=== PATIENT | male | born 1960 | race Caucasian/White ===

== ENCOUNTER 2018-02-24 09:49 | Inpatient (IN) | payer MEDICAID ==
[~2018-02-24] VITALS: Ht 172.7 cm; Wt 111.1 kg
[2018-02-24 09:52] VITALS: BP 168/116
[2018-02-24] MEDS ORDERED: LOPRESSOR50 PO (10:05)
[2018-02-24] MEDS ORDERED: ATORVASTATIN CA40 MG PO (10:05)
[2018-02-24] MEDS ORDERED: LISINOPRIL20 MG PO (10:05)
[2018-02-24] MEDS ORDERED: AMLODIPINE BESY10 MG PO (10:05)
[2018-02-24] MEDS ORDERED: CARDIZEM CD120 MG PO (10:05)
[2018-02-24] MEDS ORDERED: NAPROSYN500 MG PO (10:06)
[2018-02-24] MEDS ORDERED: ASPIRIN325 PO (10:06)
[2018-02-24] MEDS ORDERED: HYDRALAZINE 2525 MG PO (10:06)
[2018-02-24 10:42] LABS: HEMATOCRIT 48.9 % (42.0-52.0); HEMOGLOBIN 16.5 gm/dL (14.0-18.0); MCH 33.6 pg (26.0-34.0); MCHC 33.8 g/dL (28.0-37.0); MCV 99.5 fL (80.0-100.0); MPV 8.9 fl. (7.2-11.1); NUCLEATED RBCS 0 /100WBC; PLATELET COUNT* 240 thou/uL (150-400); RBC 4.91 mil/uL (4.50-6.00); RDW-CV 12.9 % (10.5-14.5); WBC 14.7 thou/uL (4.0-11.0)
[2018-02-24 11:05] LABS: APTT 24.1 Seconds (25.0-31.3); PROTIME 10.1 Seconds (9.20-11.50)
[2018-02-24 11:06] LABS: ANION GAP 10 mmol/L (7-16); BUN 16 mg/dL (7-18); CALCIUM 11.6 mg/dL (8.5-10.1); CHLORIDE 102 mmol/L (98-107); CO2 31 mmol/L (21-32); CREATININE 1.1 mg/dL (0.6-1.3); GLUCOSE 140 mg/dL (70-99); POTASSIUM 3.3 mmol/L (3.5-5.1); SODIUM 143 mmol/L (136-145)
[2018-02-24 11:08] LABS: SALICYLATE < 2.8 mg/dL (2.8-20.0)
[2018-02-24 11:11] LABS: ACETAMINOPHEN < 2 ug/mL (10-30); ALCOHOL < 10 mg/dL (<10)
[2018-02-24 11:27] LABS: ALBUMIN 4.4 g/dL (3.4-5.0); ALKALINE PHOSPHATASE 98 U/L (46-116); CK-MB MASS 0.8 ng/mL (<0.5-3.6); LIPASE 104 U/L (73-393); MAGNESIUM 2.2 mg/dL (1.8-2.4); NT-PRO BRAIN NAT PEPTIDE 455 pg/mL (<300); SGOT 53 U/L (15-37); SGPT 104 U/L (30-65); TOTAL BILIRUBIN 0.8 mg/dL (<0.1-1.0); TOTAL PROTEIN 9.8 g/dL (6.4-8.2); TROPONIN-I LEVEL <0.06 ng/mL (<0.06)
[2018-02-24 11:48] LABS: ABSOLUTE BASOPHILS 0.1 thou/uL (0.0-0.2); ABSOLUTE LYMPHOCYTES 0.9 thou/uL (0.8-5.3); ABSOLUTE NEUTROPHILS 13.7 thou/uL (1.6-8.1)
[2018-02-24 11:49] LABS: PLATELET ESTIMATE ADEQUATE
[2018-02-24 12:26] LABS: URINE BILIRUBIN NEGATIVE (Negative); URINE BLOOD NEGATIVE (Negative); URINE CLARITY SL CLOUDY; URINE COLOR YELLOW; URINE GLUCOSE-RANDOM NEGATIVE (Negative); URINE KETONES TRACE (Negative); URINE LEUKOCYTES-REFLEX NEGATIVE (Negative); URINE NITRITE-REFLEX NEGATIVE (Negative); URINE PROTEIN 2+ (Negative); URINE SPECIFIC GRAVITY 1.015 (1.005-1.030); URINE UROBILINOGEN 0.2 E.U./dl (0.2-1.0)
[2018-02-24 12:33] LABS: AMP/METHAMP Negative (Negative); BARBITURATES Negative (Negative); BENZODIAZEPINES Negative (Negative); COCAINE Negative (Negative); METHADONE Negative (Negative); OPIATES Negative (Negative); PCP Negative (Negative); THC Negative (Negative)
[2018-02-24 12:36] LABS: AMORPHOUS PHOSPHATES Many /LPF (None Seen); CASTS None Seen /LPF (None Seen); SQUAMOUS 0-3 Few /LPF (0-3)
[2018-02-24 12:37] LABS: BACTERIA-REFLEX None Seen /HPF (None Seen); URINE RBC 0-2 Rare /HPF (0-2); URINE WBC-REFLEX 0-5 Rare /HPF (0-5)
[2018-02-24 13:36] VITALS: BP 202/122
[2018-02-24 14:07] VITALS: BP 167/104
[2018-02-24 15:19] LABS: CALCIUM 10.5 mg/dL (8.5-10.1); CREATININE 1.1 mg/dL (0.6-1.3); POTASSIUM 3.4 mmol/L (3.5-5.1)
[2018-02-24 15:55] VITALS: BP 181/113
[2018-02-24 20:00] VITALS: BP 142/95
[2018-02-25] VITALS: BP 137/83
[2018-02-25 04:00] VITALS: BP 116/64
[2018-02-25 05:47] LABS: HEMATOCRIT 40.6 % (42.0-52.0); HEMOGLOBIN 13.8 gm/dL (14.0-18.0); MCH 34.2 pg (26.0-34.0); MCHC 34.1 g/dL (28.0-37.0); MCV 100.4 fL (80.0-100.0); RBC 4.04 mil/uL (4.50-6.00); RDW-CV 13.2 % (10.5-14.5); WBC 14.6 thou/uL (4.0-11.0)
[2018-02-25 06:14] LABS: ANION GAP 11 mmol/L (7-16); BUN 22 mg/dL (7-18); CALCIUM 9.2 mg/dL (8.5-10.1); CHLORIDE 105 mmol/L (98-107); CO2 24 mmol/L (21-32); GLUCOSE 102 mg/dL (70-99); MAGNESIUM 2.1 mg/dL (1.8-2.4); POTASSIUM 3.6 mmol/L (3.5-5.1); SODIUM 140 mmol/L (136-145); TROPONIN-I LEVEL <0.06 ng/mL (<0.06)
[2018-02-25 07:30] VITALS: BP 99/63
[2018-02-25 11:10] VITALS: BP 108/68
--- NOTE | 2018-02-25 14:43 | EKG ---
[place] [address] ELECTROCARDIOGRAM REPORT Name: DENEEN BANGURA Room: [address] ADM IN M.R.#: [id number] Admission: 02/24/18 Attend Phys: Carlos A Carmona, Discharge: Date of : 60 Report #: [id number] THIS REPORT FOR: //name// [facility] ED Test Date: 2018-02-24 Test Time: 09:52:11 Pat Name: DENEEN BANGURA Department: Room: [address] Gender: M [employer] [place] [employer]: [place] : 1960 Requested By: Bhaskar Martin Order Number: [id number] Zainab MD: Carlos Rico Measurements Intervals [place] Rate: 92 P: 43 NM: 166 QRS: -44 QRSD: 93 T: 81 QT: 369 QTc: 457 Interpretive Statements Sinus rhythm Left anterior fascicular block Anterior infarct, old, possible No previous ECG available for comparison Electronically Signed On 02-25-2018 14:43:39 CDT by Carlos Rico [email or web address] <ELECTRONICALLY SIGNED> By: Carlos Rico MD, [facility] 02/25/18 1443 1 Carlos Rico MD, FACC /EPI
[2018-02-25 15:33] VITALS: BP 113/76
[2018-02-25 20:00] VITALS: BP 150/98
[2018-02-26 00:40] VITALS: BP 115/75
[2018-02-26 04:00] LABS: HEMATOCRIT 35.1 % (42.0-52.0); MCH 34.2 pg (26.0-34.0); MCHC 34.1 g/dL (28.0-37.0); MCV 100.1 fL (80.0-100.0); MPV 8.8 fl. (7.2-11.1); RBC 3.5 mil/uL (4.50-6.00); WBC 7.9 thou/uL (4.0-11.0)
[2018-02-26 04:35] LABS: ANION GAP 9 mmol/L (7-16); BUN 21 mg/dL (7-18); CALCIUM 8.6 mg/dL (8.5-10.1); CHLORIDE 104 mmol/L (98-107); CHOLESTEROL 88 mg/dL (<200); CO2 22 mmol/L (21-32); CREATININE 1.1 mg/dL (0.6-1.3); GLUCOSE 109 mg/dL (70-99); HDL CHOLESTEROL 27 mg/dL (>40); LDL CHOLESTEROL 43 mg/dL (<100); SODIUM 135 mmol/L (136-145); TC:HDL 3.3 Ratio (Not establshd); TRIGLYCERIDE 91 mg/dL (<150); TROPONIN-I LEVEL <0.06 ng/mL (<0.06); VLDL 18 mg/dL (<40)
[2018-02-26 04:36] LABS: SERUM ASSESSMENT CLEAR
[2018-02-26 05:11] VITALS: BP 92/54
[2018-02-26 08:22] VITALS: BP 88/59
[2018-02-26 11:18] VITALS: BP 115/86
--- NOTE | 2018-02-26 15:10 | 2DMMODE ---
[place] [address] 2 D/M-MODE ECHOCARDIOGRAM Name: DENEEN BANGURA Room: [address] IN .R.#: [id number] Admission: 02/24/18 Attend Phys: Carlos A Rush Discharge: Date of : 60 Date of Service: 02/26/18 1509 Report #: [id number] THIS REPORT FOR: //name// APPROVED REPORT Study performed: 02/26/2018 11:12:47 EXAM: Comprehensive 2D, Doppler, and color-flow Echocardiogram Patient Location: Out-Patient Status: routine BSA: 2.22 HR: 76 bpm BP: 88/59 mmHg Other Information Study Quality: Adequate Indications Hypertension/HDD 2D Dimensions LVEF(%): 71.17 (>50%) IVSd: 12.13 (7-11mm) LVOT Diam: 20.44 (18-24mm) LVDd: 51.92 mm PWd: 8.75 (7-11mm) Ascending Ao: 30.34 (22-36mm) LVDs: 30.76 (25-40mm) Aortic Root: 29.52 mm Huddleston's LVEF: 71.17 % Volumes Left Atrial Volume (Systole) LA ESV Index: 20.50 mL/m2 Aortic Valve AoV Peak Isreal.: 1.28 m/s AO Peak Gr.: 6.59 mmHg LVOT Max P.33 mmHg AO Mean Gr.: 3.19 mmHg LVOT Mean P.47 mmHg LVOT Max V: 0.91 m/s AO V2 VTI: 24.03 cm LVOT Mean V: 0.55 m/s IMELDA (VTI): 3.01 cm2 LVOT V1 VTI: 22.05 cm Mitral Valve E/A Ratio: 0.70 MV Decel. Time: 256.92 [place] [address] 2 D/M-MODE ECHOCARDIOGRAM Name: DENEEN BANGURA Room: [address] IN [facility].#: [id number] Admission: 02/24/18 Attend Phys: Carlos A Rush Discharge: Date of : 60 Date of Service: 02/26/18 1509 Report #: [id number] MV E Max Isreal.: 0.55 m/s MV PHT: 74.51 ms MVA (PHT): 2.95 cm2 TDI E/Lateral E': 5.50 E/Medial E': 5.00 Medial E' Isreal.: 0.11 m/s Lateral E' Isreal.: 0.10 m/s Pulmonary Valve PV Peak Isreal.: 0.91 m/s PV Peak Gr.: 3.34 mmHg Left Ventricle The left ventricle is normal size. There is normal LV segmental wall motion. There is normal left ventricular wall thickness. Left ventricular systolic function is normal. The left ventricular ejection fraction is within the normal range. LVEF is 55-60%. Grade I - abnormal relaxation pattern. Right Ventricle The right ventricle is normal size. The right ventricular systolic function is normal. Atria The left atrium size is normal. The right atrium size is normal. Aortic Valve The aortic valve is normal in structure. No aortic regurgitation is present. There is no aortic valvular stenosis. Mitral Valve The mitral valve is normal in structure. There is no mitral valve regurgitation noted. No evidence of mitral valve stenosis. Tricuspid Valve The tricuspid valve is normal in structure. There is no tricuspid valve regurgitation noted. Pulmonic Valve Pulmonic valve is not well visualized. There is no pulmonic valvular regurgitation. Great Vessels The aortic root is normal in size. IVC is normal in size and collapses with >50% [place] [address] 2 D/M-MODE ECHOCARDIOGRAM Name: DENEEN BANGURA Room: [address] IN [facility]#: [id number] Admission: 02/24/18 Attend Phys: Carlos A Rush Discharge: Date of : 60 Date of Service: 02/26/18 1509 Report #: [id number] Pericardium There is no pericardial effusion. <Conclusion> Left ventricular systolic function is normal. The left ventricular ejection fraction is within the normal range. <ELECTRONICALLY SIGNED> By: Iggy Bajwa MD, [facility] 02/26/18 1509 1509 [id number] Iggy Bajwa MD, FAC /INF
[2018-02-26 15:43] VITALS: BP 124/68
--- NOTE | 2018-02-26 17:30 | CARDNUC ---
[place] [address] CARDIAC NUCLEAR IMAGING REPORT Name: DENEEN BANGURA Room: [address] IN [facility]#: [id number] Admission: 02/24/18 Attend Phys: Carlos A Rush Discharge: Date of : 60 Date of Service: 02/26/18 1730 Report #: [id number] THIS REPORT FOR: //name// APPROVED REPORT Study performed: 02/25/2018 13:30:00 Indication: Chest pain Patient Location: In-Patient Room #: 212 Stress Tech: Lisseth Miller Stress Nurse: Roseann Olmos RN Ht: 5 ft 8 in Wt: 244 lbs BSA: 2.22 m2 BMI: 37.09 Medical History Medical History: CAD s/p PR, HTN, Hyperlipidemia, hx of PAF Medications: atorvastatin, carvedilol, diltiazem, hydralazine, lisinopril, ntg ointment Allergies: Penicillin Cardiac Risk Factors: Age, Current Smoker, HTN, Hyperlipidemia Previous Cardiac Procedures: Myocardial infarction Exercise History: Sedentary Meds Held (24 hrs): amlodipine, carvedilol was not held 24 hours Pharmacologic Stress Pharmacologic stress test was performed by injecting Regadenoson 0.4 mg IV push over 10-15 seconds immediately followed by the intravenous injection of 41.9 mCi of Tc-99m Sestamibi. Time of stress injection: 13:10 Date: 02/26/2018 Administration Route: IV Administration Site: Left Hand Heart Rate at time of stress injection: 95 bpm. Gated Stress SPECT was performed 40 minutes after stress injection. The images were gated to evaluate regional wall motion and calculate left ventricular ejection fraction. Stress Test Details Stress Test: Pharmacologic stress testing performed using 0.4 mg of regadenoson per 5 mL given IV over 10 [place] [address] CARDIAC NUCLEAR IMAGING REPORT Name: DENEEN BANGURA Room: [address]#: [id number] Admission: 02/24/18 Attend Phys: Carlos A Rush Discharge: Date of : 60 Date of Service: 02/26/18 1730 Report #: [id number] Reason for pharmacologic stress test: physical limitation. HR Resting HR: 75 bpm Max Heart Rate (APMHR): 162 bpm Max HR Achieved: 95 bpm Target HR (85% APMHR): 137 bpm % of APMHR: 58 Recovery HR: 95 bpm BP Resting BP: 124/72 mmHg Max BP: 90/40 mmHg ECG Resting ECG: Sinus Rhythm, normal EKG Stress ECG: Sinus Rhythm, normal EKG ST Change: None Arrhythmia: None Recovery ECG: Sinus Rhythm, normal EKG Recovery ST Change: None Recovery Arrhythmia: None Clinical Reason for Termination: Completed protocol Stress Symptoms: None Exercise duration: 0 min sec Exercise capacity: 1.0 METs The patient tolerated Lexiscan infusion without significant symptoms. Stress ECG Conclusion The baseline 12-lead electrocardiogram showed normal sinus rhythm with no significant ST or T wave abnormalities. EKGs obtained during and post Lexiscan infusion show sinus rhythm with no significant ST or T wave changes when compared to baseline. There were no stress-induced arrhythmias. Study Quality Study: Good Artifact: No artifact Study Data Post stress, the left ventricular ejection was 66%.. Perfusion Perfusion images obtained post Lexiscan [place] [address] CARDIAC NUCLEAR IMAGING REPORT Name: DENEEN BANGURA Room: [address] IN [facility]#: [id number] Admission: 02/24/18 Attend Phys: Carlos A Rush Discharge: Date of : 60 Date of Service: 02/26/18 1730 Report #: [id number] the radioisotope throughout the myocardium with no defect to suggest infarct or ischemia. Wall Motion Normal left ventricular wall motion. Nuclear Conclusion ECG Findings: negative for ischemia Clinical Findings: negative for ischemia Nuclear Findings: negative for ischemia Exercise Capacity: not assessed Left Ventricular Function: normal Risk Study: low Myocardial perfusion images obtained post stress show uniform uptake of the radioisotope throughout the myocardium with no defect just infarct or ischemia. Left ventricular systolic function is normal on gated studies. This is a low risk study. <Conclusion> The baseline 12-lead electrocardiogram showed normal sinus rhythm with no significant ST or T wave abnormalities. EKGs obtained during and post Lexiscan infusion show sinus rhythm with no significant ST or T wave changes when compared to baseline. There were no stress-induced arrhythmias. <ELECTRONICALLY SIGNED> By: Carlos Rico MD, FACC 02/26/18 1730 [id number] Carlos Rico MD, FACC /INF
[2018-02-26] MEDS ORDERED: LEVAQUIN 500 M500 M2 PO (17:46)
[2018-02-26 17:50] VITALS: BP 124/68
== END 2018-02-26 18:00 | disposition home or self-care (01) | DRG 192 ==
LOC: M.ERS 09:49 → M.2W 12:43 → M.TBA-ER 12:43 → M.2W 13:47
PROVIDERS: Family Medicine; Internal Medicine Cardiovascular Disease; ADMIT Family Medicine
DX: J44.1 Chronic obstructive pulmonary disease with (acute) exacerbation (principal); R07.9 Chest pain, unspecified; I10 Essential (primary) hypertension; I25.119 Atherosclerotic heart disease of native coronary artery with unspecified angina pectoris; F17.210 Nicotine dependence, cigarettes, uncomplicated; I48.91 Unspecified atrial fibrillation; K21.9 Gastro-esophageal reflux disease without esophagitis; E87.6 Hypokalemia; D64.9 Anemia, unspecified; E78.5 Hyperlipidemia, unspecified; Z88.0 Allergy status to penicillin; Z79.01 Long term (current) use of anticoagulants